=== PATIENT | female | born 1965 | race American Indian/Alaskan Native ===

== ENCOUNTER 2016-10-28 09:12 | Emergency (ER) | payer SELFPAY ==
[2016-10-28 09:35] LABS: Basophils % (Auto) 0.3 % (0.0-1.8); Eosinophils % (Auto) 0.9 % (0.0-4.3); Hematocrit 29.9 % (30.3-42.9); Hemoglobin 9.9 gm/dl (10.1-14.3); Mean Corpuscular HGB Conc 33 % (30-34); Mean Corpuscular Hemoglobin 38 pg (28-32); Mean Corpuscular Volume 115 fl (79-97); Platelet Count 715 K/mm3 (140-440); Red Cell Distribution Width 17.5 % (13.2-15.2); White Blood Count 15.1 K/mm3 (4.5-11.0)
[2016-10-28 09:57] LABS: Alanine Aminotransferase 14 units/L (7-56); Albumin 2.9 g/dL (3.9-5); Albumin/Globulin Ratio 0.5 %; Alkaline Phosphatase 326 units/L (35-129); Anion Gap 20 mmol/L; BUN/Creatinine Ratio 11.66; Blood Urea Nitrogen 7 mg/dL (7-17); Calcium 8.9 mg/dL (8.4-10.2); Carbon Dioxide 25 mmol/L (22-30); Chloride 95.4 mmol/L (98-107); Glucose 183 mg/dL (65-100); Lipase 49 units/L (13-60); Potassium 4.2 mmol/L (3.6-5.0); Sodium 136 mmol/L (137-145); Total Protein 8.4 g/dL (6.3-8.2)
[2016-10-28 10:43] LABS: Bilirubin,Urine MOD (Negative); Blood,Urine NEG (Negative); Ketones,Urine NEG (Negative); Leukocyte Esterase,Urine NEG (Negative); Mucus,Urine 3+ /HPF; Nitrite,Urine NEG (Negative)
--- NOTE | 2016-10-28 11:17 | Emergency Department Report ---
Chief Complaint: Abdominal Pain Stated Complaint: ABD PAIN/NO BOWEL MOVEMENT X 2WKS Time Seen by Provider: 10/28/16 11:13 - HPI History of Present Illness: PT states she has diverticulitis. PT states she has not have a bm in 2 weeks. PT states she tried OTCs and enema's but no improvement. - ROS Review of Systems: - fever + mid abd pain, radiates up and down + n/v + weight loss - Exam Vital Signs: Vital Signs 10/28/16 09:17 Temperature 98.6 F Pulse Rate 119 H Respiratory 20 Rate Blood Pressure 146/99 O2 Sat by Pulse 100 Oximetry Physical Exam: abd soft luq ttp, llq ttp MSE screening note: Focused history and physical exam performed. Due to findings the following was ordered: imaging ED Medical Decision Making - Lab Data Result diagrams: 10/28/16 09:20 10/28/16 09:20 ED Disposition for MSE Condition: Stable Instructions: Abdominal Pain (ED) Referrals: PRIMARY CARE, [Primary Care Provider] - 3-5 Days
[2016-10-28] MEDS ORDERED: ATIVAN IV ONE (12:56)
[2016-10-28] MEDS ORDERED: ZOFRAN IV ONE (12:56)
--- NOTE | 2016-10-28 12:56 | Emergency Department Report ---
ED Abdominal Pain HPI - General Chief Complaint: Abdominal Pain Stated Complaint: ABD PAIN/NO BOWEL MOVEMENT X 2WKS Time Seen by Provider: 10/28/16 11:13 Source: patient, RN notes reviewed, old records reviewed Mode of arrival: Ambulatory Limitations: No Limitations - History of Present Illness Initial Comments: This is a 51-year-old female. She is previously unknown to me. She does not currently have a local primary care doctor. Past medical history includes hypertension, diverticulitis, "enlarged liver", daily alcohol use. The patient presents to the ER with complaint of inability to defecate for 2 weeks. She describes crampy abdominal pain. Mild nausea but no recent vomiting. No headache, neck pain, chest pain, no irritative or obstructive urinary symptoms. Her last alcohol consumption was yesterday. She subjectively feels like she does not have the "shakes." She is passing gas. Abdominal surgical history includes fallopian tube removal, she is not certain which laterality. She reports that she also had a colonoscopy 3 years ago, but is not certain at which hospital, it is not certain of the results. MD Complaint: abdominal pain -: Gradual Location: diffuse Migration to: no migration Quality: cramping Consistency: intermittent Improves With: nothing Worsens With: nothing Associated Symptoms: nausea, constipation - Related Data Previous Rx's Medication Instructions Recorded Last Taken Type Dicyclomine [Bentyl] 10 mg PO QID PRN #20 capsule 10/28/16 Unknown Rx Ondansetron [Zofran Odt] 4 mg PO QID PRN #20 tab.rapdis 10/28/16 Unknown Rx chlordiazePOXIDE [Librium] 25 mg PO Q8H PRN #20 capsule 10/28/16 Unknown Rx Allergies Allergy/AdvReac Type Severity Reaction Status Date / Time No Known Allergies Allergy Verified 10/28/16 09:17 ED Review of Systems ROS: Stated complaint: ABD PAIN/NO BOWEL MOVEMENT X 2WKS Other details as noted in HPI Constitutional: denies: fever, malaise Eyes: denies: vision change ENT: denies: epistaxis Respiratory: denies: cough Cardiovascular: denies: chest pain Gastrointestinal: abdominal pain, constipation Genitourinary: denies: urgency, dysuria Musculoskeletal: denies: back pain Skin: denies: lesions Neurological: denies: weakness Psychiatric: denies: anxiety, homicidal thoughts, suicidal thoughts ED Past Medical Hx - Past Medical History Previous Medical History?: Yes Hx Hypertension: Yes Additional medical history: Diverticulitis - Social History Smoking Status: Never Smoker Substance Use Type: Alcohol - Medications Home Medications: Home Medications Medication Instructions Recorded Confirmed Last Taken Type Dicyclomine [Bentyl] 10 mg PO QID PRN #20 capsule 10/28/16 Unknown Rx Ondansetron [Zofran Odt] 4 mg PO QID PRN #20 tab.rapdis 10/28/16 Unknown Rx chlordiazePOXIDE [Librium] 25 mg PO Q8H PRN #20 capsule 10/28/16 Unknown Rx ED Physical Exam - General Limitations: No Limitations General appearance: alert, in no apparent distress - Head Head exam: Present: atraumatic, normocephalic - Eye Eye exam: Present: normal appearance, EOMI - ENT ENT exam: Present: normal exam, normal orophraynx, mucous membranes moist, normal external ear exam, other (patient has tongue fasciculations.) - Neck Neck exam: Present: normal inspection, full ROM. Absent: tenderness, meningismus - Respiratory Respiratory exam: Present: normal lung sounds bilaterally. Absent: respiratory distress, wheezes, rales, rhonchi, stridor, chest wall tenderness, accessory muscle use, decreased breath sounds, prolonged expiratory - Cardiovascular Cardiovascular Exam: Present: normal rhythm, tachycardia, normal heart sounds. Absent: systolic murmur, diastolic murmur, rubs, gallop - GI/Abdominal GI/Abdominal exam: Present: soft, tenderness, normal bowel sounds. Absent: distended, guarding, rebound, rigid, pulsatile mass - Extremities Exam Extremities exam: Present: normal inspection, full ROM, normal capillary refill. Absent: pedal edema, joint swelling, calf tenderness - Back Exam Back exam: Present: normal inspection, full ROM. Absent: tenderness, CVA tenderness (R), CVA tenderness (L), muscle spasm, paraspinal tenderness, vertebral tenderness - Neurological Exam Neurological exam: Present: alert, oriented X3, normal gait, other (Extraocular movements intact. Tongue midline. No facial droop. Facial sensation intact to light touch in the V1, V2, V3 distribution bilaterally. 5 and 5 strength in 4 extremities.. Sensation is intact to light touch in 4 extremities.). Absent : motor sensory deficit - Psychiatric Psychiatric exam: Present: normal affect, normal mood - Skin Skin exam: Present: warm, dry, intact, normal color. Absent: rash ED Course Vital Signs 10/28/16 10/28/16 10/28/16 09:17 13:12 14:30 Temperature 98.6 F 98.2 F 97.9 F Pulse Rate 119 H 99 H 96 H Respiratory 20 17 17 Rate Blood Pressure 146/99 Blood Pressure 114/63 143/74 [Left] O2 Sat by Pulse 100 99 97 Oximetry 10/28/16 10/28/16 16:12 17:10 Temperature 98.5 F 98.2 F Pulse Rate 105 H 99 H Respiratory 16 17 Rate Blood Pressure Blood Pressure 103/66 113/73 [Left] O2 Sat by Pulse 98 100 Oximetry - Reevaluation(s) Reevaluation #1: 10/28/16 13:32 differential diagnosis: Colitis, diverticulitis, malignancy, macrocytic anemia, alcohol dependence, alcohol withdrawal Assessment and plan: 51-year-old female with a primary complaint of abdominal pain and constipation. She is afebrile, initially tachycardic, although her tachycardia has resolved. She is clinically sober at this time, with a GCS of 15, and an NIH score is 0. patient may be having a component of mild early alcohol withdrawal, given tachycardia and tongue fasciculations. She will be treated empirically with a banana bag, she is given Ativan, and she is given Librium. Liver panel demonstrates nonspecific elevation in liver function tests, consistent with history of alcohol use. We will obtain a CT scan with IV and oral contrast to exclude surgical disease. Patient does not require 1013 at this time. Reevaluation #2: 10/28/16 16:05 tachycardia resolved. Patient had large bowel movement in the ER. Reports that she feels improved. CT scan is pending. Care is transferred to the oncoming physician, Dr. Anderson, who will follow-up the CT scan. Assuming no significant disease, patient will be discharged with nausea medication, nonnarcotic pain medication, as needed Librium, instructions to discontinue/diminish alcohol consumption, and follow-up with an outpatient primary care doctor for her nonspecific macrocytic anemia, as well as her transaminitis. Reevaluation #3: 10/29/16 15:57 I contacted the patient at her listed phone number. I went over the CT scan findings and the laboratory studies. The patient understands that she is to follow-up with a primary care doctor or rn er within the next month. She reports that she is feeling much better. i specifically informed her that there were abnormalities in the liver that would require follow up ED Medical Decision Making - Lab Data Result diagrams: 10/28/16 09:20 10/28/16 09:20 Vital Signs 10/28/16 10/28/16 09:17 13:12 Temperature 98.6 F 98.2 F Pulse Rate 119 H 99 H Respiratory 20 17 Rate Blood Pressure 146/99 Blood Pressure 114/63 [Left] O2 Sat by Pulse 100 99 Oximetry Lab Results 10/28/16 10/28/16 10/28/16 Range/Units 09:20 09:20 09:53 WBC 15.1 H (4.5-11.0) K/mm3 RBC 2.60 L (3.65-5.03) M/mm3 Hgb 9.9 L (10.1-14.3) gm/dl Hct 29.9 L (30.3-42.9) % MCV 115 H (79-97) fl MCH 38 H (28-32) pg MCHC 33 (30-34) % RDW 17.5 H (13.2-15.2) % Plt Count 715 H (140-440) K/mm3 Lymph % (Auto) 23.5 (13.4-35.0) % [place] % (Auto) 3.4 (0.0-7.3) % Eos % (Auto) 0.9 (0.0-4.3) % Baso % (Auto) 0.3 (0.0-1.8) % Lymph # 3.5 (1.2-5.4) K/mm3 [place] # 0.5 (0.0-0.8) K/mm3 Eos # 0.1 (0.0-0.4) K/mm3 Baso # 0.0 (0.0-0.1) K/mm3 Seg Neutrophils % 71.9 H (40.0-70.0) % Seg Neutrophils # 10.8 H (1.8-7.7) K/mm3 Sodium 136 L (137-145) mmol/L Potassium 4.2 (3.6-5.0) mmol/L Chloride 95.4 L (98-107) mmol/L Carbon Dioxide 25 (22-30) mmol/L Anion Gap 20 mmol/L BUN 7 (7-17) mg/dL Creatinine 0.6 L (0.7-1.2) mg/dL Estimated GFR > 60 ml/min BUN/Creatinine Ratio 11.66 % Glucose 183 H (65-100) mg/dL Calcium 8.9 (8.4-10.2) mg/dL Total Bilirubin 1.40 H (0.1-1.2) mg/dL AST 82 H (5-40) units/L ALT 14 (7-56) units/L Alkaline Phosphatase 326 H (35-129) units/L Total Protein 8.4 H (6.3-8.2) g/dL Albumin 2.9 L (3.9-5) g/dL Albumin/Globulin Ratio 0.5 % Lipase 49 (13-60) units/L Urine Color Red (Yellow) Urine Turbidity Turbid (Clear) Urine pH 5.0 (5.0-7.0) Ur Specific Stanley 1.028 (1.003-1.030) Urine Protein 100 mg/dl (Negative) mg/dL Urine Glucose (UA) Neg (Negative) mg/dL Urine Ketones Neg (Negative) mg/dL Urine Blood Neg (Negative) Urine Nitrite Neg (Negative) Urine Bilirubin Mod (Negative) Urine Ictotest Negative (Negative) Urine Urobilinogen 4.0 (<2.0) mg/dL Ur Leukocyte Esterase Neg (Negative) Urine WBC (Auto) 13.0 H (0.0-6.0) /HPF Urine RBC (Auto) 8.0 (0.0-6.0) /HPF U Epithel Cells (Auto) 11.0 (0-13.0) /HPF Urine Mucus 3+ /HPF Critical care attestation.: If time is entered above; I have spent that time in minutes in the direct care of this critically ill patient, excluding procedure time. ED Disposition Clinical Impression: Abdominal pain Disposition: DC-01 TO HOME OR SELFCARE Is pt being admited?: No Does the pt Need Aspirin: No Condition: Stable Instructions: Abdominal Pain (ED) Additional Instructions: Take the medications as directed. Moderate/discontinue alcohol consumption. Follow up with a primary care doctor within the next 2-3 weeks. Laboratory studies demonstrated nonspecific anemia, nonspecific elevation of liver test. This is most likely secondary to alcohol consumption. Return to the ER right away with new pain, worsened pain, migration of pain, fevers, chills, chest pain , shortness of breath, confusion, intractable nausea or vomiting, inability to tolerate liquid feeds. Prescriptions: chlordiazePOXIDE [Librium] 25 mg PO Q8H PRN #20 capsule PRN Reason: Alcohol Withdrawal Dicyclomine [Bentyl] 10 mg PO QID PRN #20 capsule PRN Reason: Pain Ondansetron [Zofran Odt] 4 mg PO QID PRN #20 tab.rapdis PRN Reason: Nausea Referrals: PRIMARY CARE, [Primary Care Provider] - 3-5 Days SUKUMAR CHAMPION MD [Staff Physician] - 3-5 Days JYOTI BASS MD [Staff Physician] - 3-5 Days
[2016-10-28] MEDS ORDERED: D5/0.45NS 1,000 ML IV SCH (13:00)
[2016-10-28] MEDS ORDERED: 1: FOLVITE 1 MG, INFUVITE 10 ML, VITAMIN B-1 100 MG in NACL 0.9% 1000 ML 988.8 ML 2: NA IV SCH (13:00)
[2016-10-28] MEDS ORDERED: NACL 0.9% 1000 ML 1,000 ML ONE (13:18)
[2016-10-28] MEDS ORDERED: NACL 0.9% 1000 ML 1,000 ML IV ONE (13:18)
--- NOTE | 2016-10-28 16:29 | Cat Scan Report ---
CT ABDOMEN AND PELVIS WITH CONTRAST INDICATION: Abdominal pain. Constipation versus obstruction versus ileus. COMPARISON: None similar at this institution. FINDINGS: Abdomen and pelvis CT performed following oral and IV contrast. LUNG BASES: Normal heart size. Slight lingular scarring. Nonspecific distal esophageal wall prominence/thickening, not excluded for gastroesophageal reflux and/or hiatal hernia, amongst others. Slightly elevated right hemidiaphragm. ABDOMEN: Moderate to severe diffuse fatty hepatic infiltration noted. Right hepatic lobe approximately 24.7 cm in midclavicular length. Left hepatic lobe also wraps around the spleen. Numerous focal hypodense areas within the liver appear infiltrative throughout both the right and left lobes, somewhat more confluent/prominent superiorly as on axial image 35, series 2 as also more inferiorly in the right hepatic lobe as on axial image 149, amongst others, presumed focal fatty infiltration. Some pericholecystic fatty sparing in the left hepatic lobe may also be present as on axial image 124, amongst others. No biliary dilatation. Patent veins. Spleen, gallbladder, pancreas, adrenals, aorta, IVC and kidneys within normal limits. Approximately 4 mm indeterminate right renal cortical hypodensity, axial image 157. No ascites. Few small, subcentimeter mesenteric and retroperitoneal lymph nodes noted. Largest dmitriy hepatis lymph node approximately 1.6 x 1 cm, axial image 126. Opacified GI tract nonobstructive. Few jejunal loops though slightly prominent with caliber measuring up to approximately 3 cm in the left hemiabdomen, axial image 184. Normal appendix. Underdistended ascending colon with slight exaggerated wall thickness. Numerous colonic diverticula, more so along the ascending and descending portions. PELVIS: Small amount of simple attenuation pelvic free fluid may be physiologic. Uterus, adnexa/ovaries and urinary bladder appear within normal limits. Rectosigmoid stool. Small lateral pelvic wall lymph nodes measure up to 2 x 0.6 cm on the right, axial image 314, series 2. Mild multilevel spinal degenerative spurring. Mild anterior abdominal wall subcutaneous diffuse fat stranding also noted. CONCLUSION: 1. Fatty, markedly enlarged liver with heterogeneous appearance presumed secondary to focal fatty infiltration with few other areas of relative sparing, as detailed above. Other etiologies however as an infiltrative process becomes difficult to entirely exclude on this exam alone and may be further evaluated with liver mass protocol MRI, if warranted. Direct comparison with similar prior imaging would also be helpful, if available. 2. Various other findings, including diverticulosis and minimal jejunal prominence without evidence of bowel obstruction, as described. Thank you for the opportunity to participate in this patient's care.
[2016-10-28 17:11] VITALS: BP 113/73
== END 2016-10-28 17:20 | disposition home or self-care (01) ==
LOC: ED 09:12
DX: R10.84 Generalized abdominal pain (principal); R11.0 Nausea; I10 Essential (primary) hypertension
CPT/HCPCS: 36415; 74177; 80053; 81001; 83690; 85025; 96361; 96365; 96366; 96375; 99284; J2060; J2405; J3411; J7030; Q9967

== ENCOUNTER 2018-11-29 20:56 | Emergency (ER) | payer SELFPAY ==
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
[2018-11-30] MEDS ORDERED: IBUPROFEN PO ONE (01:22)
[2018-11-30] MEDS ORDERED: FLEXERIL PO ONE (01:26)
[2018-11-30 02:16] VITALS: BP 112/67
== END 2018-11-30 02:21 | disposition home or self-care (01) ==
LOC: ED 20:56
DX: M54.5 Low back pain (principal); M54.2 Cervicalgia; M25.562 Pain in left knee; M25.561 Pain in right knee; M25.512 Pain in left shoulder; M25.511 Pain in right shoulder; I10 Essential (primary) hypertension; E11.42 Type 2 diabetes mellitus with diabetic polyneuropathy; Z98.890 Other specified postprocedural states
CPT/HCPCS: 72040; 72100; 99283

== ENCOUNTER 2020-02-10 14:28 | Emergency (ER) | payer MEDICARE ==
[2020-02-10 15:58] LABS: Basophils # (Auto) 0.1 K/mm3 (0.0-0.1); Basophils % (Auto) 0.5 % (0.0-1.8); Eosinophils % (Auto) 0.4 % (0.0-4.3); Hematocrit 35.4 % (30.3-42.9); Hemoglobin 11.4 gm/dl (10.1-14.3); Lymphocytes # (Auto) 1.8 K/mm3 (1.2-5.4); Mean Corpuscular HGB Conc 32 % (30-34); Mean Corpuscular Volume 82 fl (79-97); Monocytes # (Auto) 0.5 K/mm3 (0.0-0.8); Monocytes % (Auto) 4.4 % (0.0-7.3); Platelet Count 402 K/mm3 (140-440); Red Cell Distribution Width 18.4 % (13.2-15.2)
[2020-02-10 16:16] LABS: Alanine Aminotransferase 14 units/L (7-56); Albumin 2.2 g/dL (3.9-5); Blood Urea Nitrogen 6 mg/dL (7-17); Calcium 9.4 mg/dL (8.4-10.2); Hemolysis Index 3
[2020-02-10 16:30] LABS: BUN/Creatinine Ratio 10
[2020-02-10 16:52] LABS: Bacteria,Urine 2+ /HPF (Negative); Bilirubin,Urine NEG (Negative); Blood,Urine NEG (Negative); Color,Urine Amber (Yellow); Mucus,Urine FEW /HPF
[2020-02-10 16:53] LABS: WBC,Urine > 182.0 /HPF (0.0-6.0)
--- NOTE | 2020-02-10 17:29 | Emergency Department Report ---
ED Female HPI - General Chief complaint: Abdominal Pain Stated complaint: ABDONIAL PAIN Time Seen by Provider: 02/10/20 16:20 Source: patient Mode of arrival: Ambulatory Limitations: No Limitations - History of Present Illness Initial comments: The patient was evaluated in the emergency department for symptoms described in the history of present illness. He/she was evaluated in the context of the global COVID-19 pandemic, which necessitated consideration that the patient might be at risk for infection with the virus that causes COVID-19. Instit utional protocols and algorithms that pertain to the evaluation of patients at risk for COVID-19 are in a state of rapid change based on information released by regulatory bodies including the CDC and federal and state organizations. These policies and algorithms were followed during the patient's care in the emergency department. Please note that these policies, procedures and recommendations changed on a rapid basis. 54-year-old -[place] female presents to the emergency room for pelvic pain and dysuria. Patient states that she was admitted to this hospital and DC'd this Friday as tested positive for Covid and had pulled her Bess out during her hospitalization. Patient states since then she has been having some dysuria. She denies any fever or chills. Patient is a diabetic and reports she has been compliant on all her meds. Patient states she has been drinking her water. She does have a primary care doctor Dr. Umanzor first name Ursula. Patient denies any elevated blood sugars. MD Complaint: dysuria, pelvic pain Onset/Timin -: days(s) Location: suprapubic Severity: moderate - Related Data Home Medications Medication Instructions Recorded Confirmed Last Taken Gabapentin 400 mg PO Q8HR 01/20/20 01/29/20 Unknown Previous Rx's Medication Instructions Recorded Last Taken Type Dicyclomine [Bentyl] 10 mg PO QID PRN #20 capsule 10/28/16 Unknown Rx Ondansetron [Zofran Odt] 4 mg PO QID PRN #20 tab.rapdis 10/28/16 Unknown Rx chlordiazePOXIDE [Librium] 25 mg PO Q8H PRN #20 capsule 10/28/16 Unknown Rx Cyclobenzaprine [Flexeril 10 MG 10 mg PO QHS #20 tablet 11/30/18 Unknown Rx TAB] Ibuprofen [Motrin 800 MG tab] 800 mg PO Q8HR #30 tablet 11/30/18 Unknown Rx Acetaminophen [Acetaminophen TAB] 650 mg PO Q4H PRN tablet 01/22/20 Unknown Rx Dexamethasone 6 mg PO DAILY #7 tablet 01/22/20 Unknown Rx Folic Acid [Folvite] 1 mg PO QDAY #14 tablet 01/22/20 Unknown Rx Gabapentin 400 mg PO TID #90 capsule 01/22/20 Unknown Rx Insulin Detemir (Nf) [Levemir 15 unit SQ QHS #1 each 01/22/20 Unknown Rx Flextouch (Nf)] Multivitamin Tab [Multiple Vitamin 1 each PO QDAY #30 tablet 01/22/20 Unknown Rx TAB (Theragran)] Thiamine [Vitamin B-1] 100 mg PO QDAY #30 tablet 01/22/20 Unknown Rx Nitrofurantoin [place]/M-Cryst 100 mg PO Q12HR 10 Days #20 capsule 02/10/20 Unknown Rx [Macrobid CAP] Allergies Allergy/AdvReac Type Severity Reaction Status Date / Time No Known Allergies Allergy Verified 10/28/16 09:17 ED Review of Systems ROS: Stated complaint: ABDONIAL PAIN Other details as noted in HPI ED Past Medical Hx - Past Medical History Previous Medical History?: Yes Hx Hypertension: Yes Hx Congestive Heart Failure: No Hx Diabetes: Yes Hx Liver Disease: Yes (chirrohsis) Hx Asthma: No Additional medical history: Diverticulitis, Neuropathy, Liver disease,+ Covid 01/31/2020 - Surgical History Past Surgical History?: Yes Additional Surgical History: Salpingectomy - Social History Smoking Status: Never Smoker Substance Use Type: None - Medications Home Medications: Home Medications Medication Instructions Recorded Confirmed Last Taken Type Dicyclomine [Bentyl] 10 mg PO QID PRN #20 capsule 10/28/16 01/29/20 Unknown Rx Ondansetron [Zofran Odt] 4 mg PO QID PRN #20 tab.rapdis 10/28/16 01/29/20 Unknown Rx chlordiazePOXIDE [Librium] 25 mg PO Q8H PRN #20 capsule 10/28/16 01/29/20 Unknown Rx Cyclobenzaprine [Flexeril 10 MG 10 mg PO QHS #20 tablet 11/30/18 01/29/20 Unknown Rx TAB] Ibuprofen [Motrin 800 MG tab] 800 mg PO Q8HR #30 tablet 11/30/18 01/29/20 Unknown Rx Gabapentin 400 mg PO Q8HR 01/20/20 01/29/20 Unknown History Acetaminophen [Acetaminophen TAB] 650 mg PO Q4H PRN tablet 01/22/20 01/29/20 Unknown Rx Dexamethasone 6 mg PO DAILY #7 tablet 01/22/20 01/29/20 Unknown Rx Folic Acid [Folvite] 1 mg PO QDAY #14 tablet 01/22/20 01/29/20 Unknown Rx Gabapentin 400 mg PO TID #90 capsule 01/22/20 01/29/20 Unknown Rx Insulin Detemir (Nf) [Levemir 15 unit SQ QHS #1 each 01/22/20 01/29/20 Unknown Rx Flextouch (Nf)] Multivitamin Tab [Multiple Vitamin 1 each PO QDAY #30 tablet 01/22/20 01/29/20 Unknown Rx TAB (Theragran)] Thiamine [Vitamin B-1] 100 mg PO QDAY #30 tablet 01/22/20 01/29/20 Unknown Rx Nitrofurantoin [place]/M-Cryst 100 mg PO Q12HR 10 Days #20 capsule 02/10/20 Unknown Rx [Macrobid CAP] ED Physical Exam - General Limitations: No Limitations ED Course Vital Signs 02/10/20 02/10/20 02/10/20 15:34 16:53 17:02 Temperature 97.8 F 101.1 F H 101.1 F H Pulse Rate 105 H 106 H 109 H Respiratory 20 16 16 Rate Blood Pressure 133/81 107/76 Blood Pressure 107/76 [Left] O2 Sat by Pulse 96 100 100 Oximetry ED Medical Decision Making - Lab Data Result diagrams: 02/10/20 15:41 02/10/20 15:41 - Medical Decision Making 54-year-old -[place] female presents to the emergency room for pelvic pain and dysuria. Patient states that she was admitted to this hospital and DC'd this Friday as tested positive for Covid and had pulled her Bess out during her hospitalization. Patient states since then she has been having some dysuria. She denies any fever or chills. Patient is a diabetic and reports she has been compliant on all her meds. Patient states she has been drinking her water. She does have a primary care doctor Dr. Umanzor first name Ursula. Patient denies any elevated blood sugars. It was noted that patient has spiked a fever to 101 on her [facility] visit. Heart rate jumped to 109. This provider initiated [place] for for pain and antipyretic, Rocephin for urinary tract infection in 1 L of normal saline. Patient will be reevaluated and discharged home on Keflex 500 mg p.o. twice daily for 10 days. Urine culture has been sent out. Critical care attestation.: If time is entered above; I have spent that time in minutes in the direct care of this critically ill patient, excluding procedure time. ED Disposition Clinical Impression: UTI (urinary tract infection) Disposition: DC-01 TO HOME OR SELFCARE Is pt being admited?: No Does the pt Need Aspirin: No Condition: Stable Instructions: Abdominal Pain (ED), Urinary Tract Infection, Adult, [id number] Additional Instructions: Complete antibiotics as prescribed. Prescriptions: Nitrofurantoin [place]/M-Cryst [Macrobid CAP] 100 mg PO Q12HR 10 Days #20 capsule
[2020-02-10] MEDS ORDERED: SODIUM CHLORIDE 0.9% 1000 ML 1,000 ML IV ONE (17:33)
[2020-02-10] MEDS ORDERED: HYDROcodone/ACETAMINOPHEN 7.5-325MG TAB PO ONE (17:34)
[2020-02-10] MEDS ORDERED: cefTRIAXone/NS 1 GM/50 ML 1 GM/50 ML BAG IV ONE (17:37)
[2020-02-10 20:29] VITALS: BP 127/80
== END 2020-02-10 20:29 | disposition home or self-care (01) ==
LOC: ED 14:28
DX: N39.0 Urinary tract infection, site not specified (principal); I10 Essential (primary) hypertension; E11.9 Type 2 diabetes mellitus without complications; Z79.899 Other long term (current) drug therapy
CPT/HCPCS: 36415; 80053; 81001; 85025; 87086; 96365; 96366; 99283; J0696; J7030